=== PATIENT | female | born 1990 | race Two or more races ===

== ENCOUNTER → 2024-03-31 | Outpatient (CLI) | payer MEDICAID, SELFPAY ==
--- NOTE | 2024-03-31 10:13 | XR_ITS ---
Examination: Lumbar spine 3 views Technique one AP lateral coned lateral lower lumbar spine 3 views Exam date and time: March 31, 2024 1108 hours INDICATIONS: Lower right-sided back pain beginning 3 days ago. FINDINGS: Minimal lumbar dextroscoliosis which may be positional No lumbar fracture Minimal lumbar spondylosis Mild disc narrowing posteriorly L5-S1 No spondylolisthesis IMPRESSION: Minimal disc narrowing posteriorly L5-S1
== END | disposition home or self-care (01) ==
PROVIDERS: Referring Provider Nurse Practitioner Family; Visit Provider Nurse Practitioner Family
DX: M48.07 Spinal stenosis, lumbosacral region (principal)
CPT/HCPCS: 72100